=== PATIENT | female | born 1930 | race Caucasian/White ===

== ENCOUNTER 2019-09-08 16:23 | Inpatient (IN) | payer OTHER ==
[~2019-09-08] VITALS: Ht 152.4 cm; Wt 69.9 kg
[2019-09-08 16:29] VITALS: BP_SYST 99
--- NOTE | 2019-09-08 16:39 | NUR ---
Placed in room 2. Placed on quality assurance monitor chassis, blood pressure machine and pulse oximeter. To gown for exam. Side rails up. Report given to CARMITA Johnson.
--- NOTE | 2019-09-08 16:41 | NUR ---
Patient arrived in the ED c/o BLE weeping edema, audible wheezing, and left foot wound that started 3 days ago. Denied any chest pain. Denied any fevers, nausea, vomiting, or chills. Patient is alert and oriented x4, respirations even and unlabored, speaking in full sentences, ambulating with a steady gait. VSS, pain level 0/10. Informed of wait time. Instructed to notify ED staff for any changes in condition or worsening of symptoms. Patient verbalized understanding.
--- NOTE | 2019-09-08 17:00 | NUR ---
ECG done at bedside as ordered by Dr. Patricia. Patient tolerated the procedure well. ER Physician given copy of EKG for review.
--- NOTE | 2019-09-08 17:15 | NUR ---
ER Dr. Patricia at bedside examining patient.
--- NOTE | 2019-09-08 17:27 | NUR ---
# 20 gauge angiocath placed to right hand. Use of asceptic technique. Opsite placed over site. Blood return noted. Flushed with 10 cc of normal saline. No evidence of infiltration noted. Patient tolerated well. Addendum: 09/08/19 at 1756 by [email or web address] # 20 gauge angiocath placed to LAC. Use of asceptic technique. Opsite placed over site. Blood return noted. Flushed with 10 cc of normal saline. No evidence of infiltration noted. Patient tolerated well.
--- NOTE | 2019-09-08 17:48 | NUR ---
X-ray done at bedside as ordered by Dr. Patricia. Patient tolerated the procedure well.
[2019-09-08 18:09] LABS: BASOPHILS % (AUTO) 0.4 % (0.0-2.0); EOSINOPHILS # (AUTO) 0.3 K/uL (0.0-0.4); EOSINOPHILS % (AUTO) 3.7 % (0.0-4.0); HEMATOCRIT 34.4 % (36-48); HEMOGLOBIN 11.3 g/dL (12.0-16.0); LYMPHOCYTES # (AUTO) 0.8 K/uL (1.0-5.5); LYMPHOCYTES % (AUTO) 11.3 % (20.5-51.5); MEAN CORPUSCULAR HEMOGLOBIN 31 pg (27-31); MEAN CORPUSCULAR HGB CONC 33 % (32-36); MEAN CORPUSCULAR VOLUME 95 fL (79.0-98.0); MONOCYTES # (AUTO) 0.7 K/uL (0.0-1.0); MONOCYTES % (AUTO) 8.9 % (1.7-9.3); NEUTROPHILS # (AUTO) 5.5 K/uL (1.8-7.7); NEUTROPHILS % (AUTO) 75.7 % (40.0-70.0); PLATELET COUNT (AUTO) 157 K/uL (130-430); RED BLOOD CELL COUNT(AUTO) 3.62 MIL/uL (4.2-6.2); RED CELL DISTRIBUTION WIDTH 15.4 % (9.0-15.0); WHITE BLOOD COUNT (AUTO) 7.3 K/uL (4.8-10.8)
[2019-09-08 18:22] LABS: ANION GAP 11 (5-15); CALCIUM 9.4 mg/dL (8.4-11.0); CHLORIDE 103 mmol/L (98-107); CREATININE 0.93 mg/dL (0.55-1.30); GLUCOSE 355 mg/dL (70-99); POTASSIUM 4.7 mmol/L (3.5-5.1); SODIUM SERUM 136 mmol/L (136-145); UREA NITROGEN, BLOOD 22 mg/dL (8-21)
[2019-09-08 18:27] LABS: INR 1.2 (0.8-1.2); PROTHROMBIN TIME 11.6 SECS (9.5-12.5)
[2019-09-08 18:28] LABS: ALANINE AMINOTRANSFERASE 55 U/L (12-78); ALBUMIN 2.8 g/dL (3.4-4.8); ASPARTATE AMINOTRANSFERASE 48 U/L (10-37); TOTAL BILIRUBIN 0.7 mg/dL (0.0-1.0)
[2019-09-08] MEDS ORDERED: CEFAZOLIN 1 GM IVPB PREMIX 50 ML IV ONE (19:00)
--- NOTE | 2019-09-08 19:05 | NUR ---
X-ray done at bedside as ordered by Dr. Patricia. Patient tolerated the procedure well.
--- NOTE | 2019-09-08 19:10 | NUR ---
Administered Ancef IVF as ordered by Dr. Patricia. Patient tolerated the medication well. See eMAR.
--- NOTE | 2019-09-08 19:22 | NUR ---
Report given and care transferred to CARMITA Carmona.
--- NOTE | 2019-09-08 19:30 | NUR ---
ASSUMED CARE. RECEIVED RESTING IN BED. AFEBRILE, NOT IN ACUTE DITRESS. NO PAIN OR DISCOMFORT NOTED. ANCEF IVPB INFUSING. VS STABLE, WILL CONTINUE TO MONITOR.
--- NOTE | 2019-09-08 19:50 | NUR ---
ADMITTED TO TELEMETRY FLOOR FOR CHF EXACERBATION UNDER THE SERVICE. OF . GAVE ADMITTING ORDERS. AWAITING BED ASSIGNMENT.
--- NOTE | 2019-09-08 20:12 | NUR ---
MRSA SWAB CLLECTED AND SENT TO THE LAB.
--- NOTE | 2019-09-08 20:35 | NUR ---
REPORT GIVEN TO KIMBERLY VIZCARRA. PT.GOING TO ROOM 120-A. PT. REMAINS STABLE AND PAIN FREE.
[2019-09-08] MEDS ORDERED: ALBUTEROL SULFATE 0.083% 2.5 MG/3 ML VIAL.NEB INH PRN (20:45)
--- NOTE | 2019-09-08 20:53 | NUR ---
TRANSFERRED TO FLOOR VIA ACLS PROTOCOL STABLE. TRANSFER UNEVENTFUL.
--- NOTE | 2019-09-08 20:56 | NUR ---
ADMISSION NOTE Received patient from ER via saqib, received report from CARMITA VILLAGOMEZ. Patient admitted with diagnosis of CONGESTIVE HEART FAILURE. Patient oriented to hospital routine, call light, toileting and safety-patient verbalized understanding.
--- NOTE | 2019-09-08 20:58 | NUR ---
INITIAL NOTES Patient is alert, confused, and hard of hearing. Oriented patient to plan of care and use of call light. IV site and Left arm patent, dressing c/d/i. Will continue to monitor.
[2019-09-08 21:06] VITALS: BP_SYST 127
[2019-09-08 21:38] VITALS: BP_SYST 147
--- NOTE | 2019-09-08 22:10 | NUR ---
IV RE-INSERTION: Restarted on Right AC after 2 attempts. Resumed current IV antibiotics. Will observe for any signs of infiltration.
[2019-09-08] MEDS ORDERED: cefTRIAXone 1 GM VIAL ONE (22:53)
[2019-09-08] MEDS: INSULIN REGULAR, HUMAN 100 UNITS/ML, 10 ML VIAL (humuLIN R) SUBCUT PRN (23:08)
[2019-09-08] MEDS: cefTRIAXone 1 GM IVPB PREMIX 50 ML IV SCH (23:12)
--- NOTE | 2019-09-09 00:05 | NUR ---
Patient is incontinent, incontinence care provided. Patient is confused, reoriented patient to location. Will continue to monitor.
[2019-09-09 01:34] VITALS: BP_SYST 120
--- NOTE | 2019-09-09 02:20 | NUR ---
Patient is asleep, eyes closed. No signs of distress observed. Rise and fall of chest noted. will continue to monitor.
--- NOTE | 2019-09-09 04:30 | NUR ---
Patient pulled out IV on Right arm, no signs of distress observed, pressure applied to IV site, catheter intact. Patient is confused and is trying to stand. Oriented patient to location and time and reason for stay. Patient is now back in bed resting. Will continue to monitor.
[2019-09-09] MEDS: INSULIN REGULAR, HUMAN 100 UNITS/ML, 10 ML VIAL (humuLIN R) SUBCUT PRN ×4 (06:11→20:47)
[2019-09-09 06:16] LABS: BASOPHILS % (AUTO) 0.3 % (0.0-2.0); EOSINOPHILS # (AUTO) 0.4 K/uL (0.0-0.4); EOSINOPHILS % (AUTO) 5.8 % (0.0-4.0); HEMATOCRIT 31.8 % (36-48); HEMOGLOBIN 10.4 g/dL (12.0-16.0); LYMPHOCYTES % (AUTO) 13.6 % (20.5-51.5); MEAN CORPUSCULAR HEMOGLOBIN 31 pg (27-31); MEAN CORPUSCULAR HGB CONC 33 % (32-36); MEAN CORPUSCULAR VOLUME 96 fL (79.0-98.0); MONOCYTES # (AUTO) 0.7 K/uL (0.0-1.0); MONOCYTES % (AUTO) 9.8 % (1.7-9.3); NEUTROPHILS # (AUTO) 5.2 K/uL (1.8-7.7); NEUTROPHILS % (AUTO) 70.5 % (40.0-70.0); PLATELET COUNT (AUTO) 142 K/uL (130-430); RED BLOOD CELL COUNT(AUTO) 3.32 MIL/uL (4.2-6.2); RED CELL DISTRIBUTION WIDTH 15.3 % (9.0-15.0); WHITE BLOOD COUNT (AUTO) 7.4 K/uL (4.8-10.8)
[2019-09-09 06:29] LABS: ALBUMIN 2.5 g/dL (3.4-4.8); ANION GAP 9 (5-15); ASPARTATE AMINOTRANSFERASE 41 U/L (10-37); CALCIUM 8.9 mg/dL (8.4-11.0); CHLORIDE 105 mmol/L (98-107); CREATININE 0.83 mg/dL (0.55-1.30); GLUCOSE 236 mg/dL (70-99); POTASSIUM 4.2 mmol/L (3.5-5.1); SODIUM SERUM 136 mmol/L (136-145); TOTAL BILIRUBIN 0.7 mg/dL (0.0-1.0); UREA NITROGEN, BLOOD 21 mg/dL (8-21)
--- NOTE | 2019-09-09 06:43 | NUR ---
CLOSING NOTES Patient is confused, and hard of hearing. Patient is resting comfortably at this time Oriented patient to location and situation multiple times. New IV site at Left AC, dressing c/d/i. All needs met throughout shift. Will endorse care to oncoming shift that waiting for a call back from Jonathan howard to receive med rec.
--- NOTE | 2019-09-09 07:13 | NUR ---
Spoke with son: Spoke with patient's son Jonathan over phone regarding home medications. He is unable to recall medications at this time. Per son, he will drop off list of patient's home medications in the afternoon, around 4 PM.
[2019-09-09 07:23] LABS: ALANINE AMINOTRANSFERASE 48 U/L (12-78)
--- NOTE | 2019-09-09 07:30 | NUR ---
OPENING NOTES: RECEIVED PATIENT FROM EYELET RIVETER NURSE. PATIENT IS AWAKE AND ALERT x2 LAYING DOWN IN BED. PATIENT IS CONFUSED AND YELLING FOR HER NURSE AND DOCTOR. PATIENT IS TOLERATING OXYGEN ON ROOM AIR WITH NO SIGNS OF DISTRESS OR SHORTNESS OF BREATH NOTED. IV SITE IS PATENT WITH NO SIGNS OF INFILTRATION NOTED. PATIENT IN STABLE CONDITION. SAFETY, FALL AND ASPIRATION PRECAUTIONS ARE IN PLACE. BED LOCKED IN LOWEST POSITION WITH CALL LIGHT IN REACH. WILL CONTINUE TO MONITOR PATIENT FOR ANY CHANGES.
[2019-09-09 08:13] VITALS: BP_SYST 105
[2019-09-09] MEDS: cefTRIAXone 1 GM IVPB PREMIX 50 ML IV SCH ×2 (08:40→20:38)
[2019-09-09] MEDS: ENOXAPARIN SODIUM 30 MG/0.3 ML SYRINGE SUBCUT SCH (08:41)
--- NOTE | 2019-09-09 09:48 | NUR ---
Nutrition Update Chris Scale 15 noted. Pt admitted for CHF exacerbation. Diet: [facility] BMI: 29.7 kg/m2 RD to follow per nutrition care standards.
--- NOTE | 2019-09-09 10:20 | NUR ---
RN ROUNDS: PATIENT IS AWAKE AND ALERT x2 LAYING DOWN IN BED. PATIENT IS CONFUSED AND YELLING FOR HER NURSE. PATIENT WAS REPOSITIONED AND REEDUCATED ON HOW TO USE THE CALL LIGHT. PATIENT IS IN NO DISTRESS. PATIENT IN STABLE CONDITION. WILL CONTINUE TO MONITOR PATIENT FOR ANY CHANGES.
--- NOTE | 2019-09-09 10:48 | NUR ---
Cardiac consult called: for Dr. Mccurdy, regarding CHF, ordered by Dr. Bay, spoke with Jami.
--- NOTE | 2019-09-09 11:55 | NUR ---
DC PLANNING CHART REVIEWED, PATIENT LIVES AT [address] [facility] WITH FAMILY. DAUGHTER IN LAW IS PATIENT'S PRIMARY CLINICAL PROGRAM MANAGER, PRIMARY CONTACT SON ANAND # [phone]. DCP- HOME WITH FAMILY. TRANSPORTATION- VIA FAMILY'S CAR. CONTINUE FOLLOW UP WITH DCP NEEDED JCC RN CM
--- NOTE | 2019-09-09 12:04 | NUR ---
RN ROUNDS: PATIENT IS ASLEEP LAYING DOWN IN BED. NO SIGNS OF DISTRESS OR SHORTNESS OF BREATH NOTED. PATIENT IN STABLE CONDITION. WILL CONTINUE TO MONITOR PATIENT FOR ANY CHANGES.
[2019-09-09 12:13] VITALS: BP_SYST 112
--- NOTE | 2019-09-09 14:51 | NUR ---
RN ROUNDS: PATIENT IS AWAKE AND ALERT x1 LAYING DOWN IN BED. NO SIGNS OF DISTRESS OR SHORTNESS OF BREATH NOTED. PATIENT IN STABLE CONDITION. WILL CONTINUE TO MONITOR PATIENT FOR ANY CHANGES.
--- NOTE | 2019-09-09 16:17 | NUR ---
RN ROUNDS: PATIENT IS AWAKE AND ALERT x2 LAYING DOWN IN BED. PATIENT IS CONFUSED. PATIENT WAS REORIENTED. NO SIGNS OF DISTRESS OR SHORTNESS OF BREATH NOTED. PATIENT IN STABLE CONDITION. WILL CONTINUE TO MONITOR.
[2019-09-09 16:18] VITALS: BP_SYST 116
--- NOTE | 2019-09-09 16:40 | NUR ---
WOUND EVALUATION: Wound Consult received from Dr. Bay. Thank you Dr. Bay for the consult. Patient received in a [place] Bed with a mattress, awake, alert, and oriented. Patient is unable to turn independently. Chris Score is a 15. Past Medical History: Congestive Heart Failure. Admitted for edema of the lower extremities for the past three weeks, with recent complaint of wheezing. Recent Labs: WBC 7.1, RBC 3.32, Hgb 10.4, Hct 31.8, Gluc 236, POC Gluc 283, Alb 2.5. Microbiology: Blood Culture results x 2 in progress. MRSA Screen results in progress. Intrinsic factors that delay wound healing: Congestive Heart Failure, Hypoalbuminemia. Extrinsic factors that delay wound healing: Decreased mobility. Wound Assessment: 1. Left Dorsal Foot: Ulcer from excess edema, present on admission. Wound bed has 60% dull pink tissue, 40% yellow tissue. No odor, no drainage. Periwound intact. Surrounding tissue has dry, scaly, taut, dark discolored with some wrinkles. Extremity has 3+ pitting edema, with mild erythema. Foot has 2+ pitting edema. No odor, no drainage. Wound measures 1.6 cm x 1.4 cm. 2. Left Dorsal Foot, Medial to Site 1: Ulcer from excess edema, present on admission. Wound bed has 90% yellow tissue, 10% pink tissue. No odor, no drainage. Periwound intact. Surrounding tissue has dry, scaly, taut, dark discolored skin with some wrinkles. Extremity has 3+ pitting edema, with mild erythema. Foot has 2+ pitting edema. Wound measures 0.5 cm x 0.9 cm. Recommend: Cleanse wounds with normal saline. Apply SurePrep to michael-wounds. Apply Therahoney gel to wound beds. Cover with foam dressing. Perform wound care daily, and as needed for dressing soiling or dislodgement. Elevate bilateral lower extremities above the heart as tolerated at least two hours per shift minimal. 3. Right lower Extremity: Pitting edema (2+), with mild erythema. No odor, no drainage. 4. Right Foot: Pitting edema (2+). No odor, no drainage. Recommend: Elevate bilateral lower extremities above the heart as tolerated at least two hours per shift minimal. Also recommend: Reposition patient every 2 hours with pillow support and off-load pressure areas with pillows for pressure re-distribution. Offload, elevate and float bilateral heels with pillows. Perform skin care and monitor skin integrity Q shift. Use moisture barrier cream on buttocks and other moisture susceptible areas QID and as needed for soiling. Elevate bilateral lower extremities above the heart as tolerated at least two hours per shift minimal.
--- NOTE | 2019-09-09 18:44 | NUR ---
CLOSING NOTES: PATIENT IS AWAKE AND ALERT x2 LAYING DOWN IN BED EATING DINNER. PATIENT IS TOLERATING OXYGEN ON ROOM AIR WITH NO SIGNS OF DISTRESS OR SHORTNESS OF BREATH NOTED. IV SITE IS PATENT WITH NO SIGNS OF INFILTRATION NOTED. PATIENT IN STABLE CONDITION. SAFETY, FALL AND ASPIRATION PRECAUTIONS REMAINED IN PLACE THROUGHOUT THE SHIFT. BED LOCKED IN LOWEST POSITION WITH CALL LIGHT IN REACH. WILL ENDORSE PATIENT CARE TO ONCOMING MANAGER ORACLE DATABASE NURSE.
[2019-09-09 19:00] VITALS: BP_SYST 101
--- NOTE | 2019-09-09 19:15 | NUR ---
change of shift.pt,.prt quiescet agffect;helene,rstinmg .ptt,rst genral statu stable.respiratory status stable;unlabored@ room air. loc;confused.pt.presents iv access intact patent iv lock.call light/telephone w/in reach of the pt.
[2019-09-09 20:00] VITALS: BP_SYST 101
--- NOTE | 2019-09-09 20:00 | NUR ---
pt.assessed.v/s assessed note b/p values present low values.pt.assessed for cleanliness.pt.repositioned.pt.presents iv access lock. i have as the lower extremities;lt.leg/foot;wound.nadia maria has assessed the wound.generaL StaTUs STaBLe.respiratory STABLE;UNlABORED@ROOM AIR;02-sat%=96%.i have apprised the pt.that snacks/beverages may be provided w/in the shift. no requests posited@this hour.call light/telephone placed w/in reach of the pt.
--- NOTE | 2019-09-09 20:30 | NUR ---
i have assessed the blood glucose:value;299mg/dl.i have apprised the pt.of the value. Addendum: 09/10/19 at 0119 by Eleazar Garland RN ;cardio telephoned the unit. consult;cardio for the pt.i apprised of the pt's data. to assess pt.in the am;09/10/19.
--- NOTE | 2019-09-09 21:00 | NUR ---
2100pmedicaions administered.i have administered;insulin;regular:6-units.no requests posited@this hour.
--- NOTE | 2019-09-09 22:00 | NUR ---
pt.assessed.pt.presents quiescent affect;calm,resting.no c/o pain,nausea.iv access intact;patent.iv fluids infusing: ns-flush. pt.assessed for cleanliness.pt.repositioned.general status stable.respiratory status stable;unlabored.call light/telephone placed w/in reach of the pt.
[2019-09-09] MEDS: ACETAMINOPHEN 325 MG TABLET PO PRN (23:10)
--- NOTE | 2019-09-09 23:15 | NUR ---
pt.had c/o pain;headache.i have administered tylenol:650mg po.to re-assess the pain medication efficacy per pain mgx protocol. no additional requests posited@this hour.
--- NOTE | 2019-09-10 | NUR ---
pt.assessed.v/s assessed values w/in normal limits.pt.assessed for cleanliness.pt. repositioned.iv access intact patent iv fluids;ns-flush infusing.general status stable.respiratory status stable;unlabored.call light/telephone placed w/in reach of the pt.
[2019-09-10 00:40] VITALS: BP_SYST 121
--- NOTE | 2019-09-10 02:00 | NUR ---
pt.assessed.pt.presents quiescent affect;calm,somnolent.pt.assessed for cleanliness.pt.repositioned.no c/o pain,nausea. general status stable.respiratory status stable;unlabored.iv access intact;patent iv fluids;ns-flush infusing.call light/telephone placed w/in reach of the pt.
--- NOTE | 2019-09-10 04:00 | NUR ---
pt.assessed.pt.assessed for cleanliness.pt.cleaned.pt.repositioned.iv access intact patent iv fluids;ns-flush infusing. no c/o pain,nausea.general status stable.respiratory status stable;unlabored.o2-sat%=94%.call light/telephone placed w/in reach of the pt.
[2019-09-10] MEDS: ACETAMINOPHEN 325 MG TABLET PO PRN (05:02)
[2019-09-10] MEDS: INSULIN REGULAR, HUMAN 100 UNITS/ML, 10 ML VIAL (humuLIN R) SUBCUT PRN ×4 (06:20→21:33)
--- NOTE | 2019-09-10 06:30 | NUR ---
pt.assessed.pt.presents quiescent affect;calm,somnolent.pt.assessed for cleanliness.pt.repositioned.iv access intact;patent iv fluids;ns-flush infusing.general status stable.respiratory status stable;unlabored.i have weighed the pt.2/t chf/lasix.call light/telephone placed w/in reach of the pt.
--- NOTE | 2019-09-10 08:00 | NUR ---
INITIAL NOTES Awake, in high davila's. Eating breakfast, feeds self. Denies any pain or shortness of breath. Dressing dry and intact on left foot. Wound care changed last night. Fall and safety precautions in place. Will monitor.
[2019-09-10 08:04] VITALS: BP_SYST 113
[2019-09-10] MEDS: cefTRIAXone 1 GM IVPB PREMIX 50 ML IV SCH ×2 (08:23→21:29)
[2019-09-10] MEDS: ENOXAPARIN SODIUM 30 MG/0.3 ML SYRINGE SUBCUT SCH (08:23)
--- NOTE | 2019-09-10 08:30 | NUR ---
MD ROUNDS Seen by Dr. Mccurdy at bedside.
[2019-09-10] MEDS: FUROSEMIDE 20 MG TABLET PO SCH (09:54)
[2019-09-10] MEDS: LOSARTAN POTASSIUM 50 MG TABLET (COZAAR) PO SCH (09:54)
--- NOTE | 2019-09-10 10:00 | NUR ---
Patient complained of itching on the scalp. Noticed lice on hair strands. Placed immediately on isolation. Called pharmacy for treatment.
--- NOTE | 2019-09-10 10:45 | NUR ---
MD ROUNDS Seen by Dr. Bay at bedside.
[2019-09-10] MEDS ORDERED: COMMUNICATION ORDER XX ONE (11:00)
[2019-09-10] MEDS ORDERED: LICE KILLING SHAMPOO TP ONE (12:00)
[2019-09-10 12:57] VITALS: BP_SYST 97
--- NOTE | 2019-09-10 14:18 | NUR ---
DC Planning: received call from ELIU White at [facility], stated she spoke with pt's son,Jonathan. He requested pt going to snf with possible hospice f/u. I phoned Jonathan # [phone],[facility] asking for confirmation of his dcp request. -- CM to f/u. Addendum: 09/10/19 at 1433 by Kaykay Healy RN >> S/w Jonathan, confirmed wanting pt going to snf per [place] contracted facility. He wants pt to get treatments then may decide for hospice late. -- Informed Dr. Bay and requested dcp/dc order per Cindy request.
--- NOTE | 2019-09-10 15:16 | NUR ---
LICE TREATMENT Treatment done.
--- NOTE | 2019-09-10 15:37 | NUR ---
Dietitian Recommendations * Recommend [facility] diet w/ Glucerna BID (ONS provides 440 kcal/day, 20 gm protein/day) RYLIE, RD Please refer to Nutrition Assessment for details. Addendum: 09/10/19 at [address] Amended: Links added.
[2019-09-10 16:27] VITALS: BP_SYST 135
--- NOTE | 2019-09-10 16:30 | NUR ---
Resting in bed. Denies pain or shortness of breath. Fall and safety precautions in place.
--- NOTE | 2019-09-10 18:25 | NUR ---
CLOSING NOTES In bed, eating dinner. Denies any pain. No distress. All needs met throughout shift. Will endorse.
--- NOTE | 2019-09-10 19:42 | NUR ---
Initial note: Rec'd report from dayshift RN. Patient is awake in bed, no acute distress. Alert and oriented x1, tolerating room air. Patient denies pain, shortness of breath, or itchiness. IV site patent and intact. Call light with patient. Safety, fall, contact isolation precautions in place. Will continue with plan of care.
[2019-09-10 20:34] VITALS: BP_SYST 130
--- NOTE | 2019-09-10 21:16 | NUR ---
Wound care: Left foot wound care and dressing change rendered per MD order and wound care nurse recommendations. Patient tolerated well. Call light with patient. Will continue to monitor.
--- NOTE | 2019-09-10 22:23 | NUR ---
Rounds: Patient is awake in bed, no acute distress. Tolerating room air. IV site patent and intact. Call light with patient. Will continue to monitor.
[2019-09-11 01:03] VITALS: BP_SYST 128
--- NOTE | 2019-09-11 01:24 | NUR ---
Rounds: Patient is sleeping comfortably in bed, no acute distress. Even and unlabored respirations on room air. Call light with patient. Will continue monitoring.
--- NOTE | 2019-09-11 04:11 | NUR ---
Rounds: Patient is awake, no acute distress. Breathing is even and unlabored on room air. Call light with patient. Will continue monitoring.
[2019-09-11] MEDS: INSULIN REGULAR, HUMAN 100 UNITS/ML, 10 ML VIAL (humuLIN R) SUBCUT PRN ×3 (06:31→17:07)
--- NOTE | 2019-09-11 06:41 | NUR ---
Dr. Hall: MD at nurses' station, was made aware regarding patient's son agreeing to a hospice eval per [place] CM. MD will input order.
--- NOTE | 2019-09-11 06:43 | NUR ---
Closing note: Patient is awake in bed, no acute distress. Tolerating room air. Even, unlabored respirations on room air. IV site patent and intact. All needs met. Will endorse care to dayshift RN.
--- NOTE | 2019-09-11 08:00 | NUR ---
received awake and oriented to self only and reoriented to place and time no c/o discomfort vss resp even and unlabored taking diet well gen weakness to ext noted bl will continue to monitor and call servin in place
[2019-09-11] MEDS: FUROSEMIDE 20 MG TABLET PO SCH (08:34)
[2019-09-11] MEDS: cefTRIAXone 1 GM IVPB PREMIX 50 ML IV SCH (08:35)
[2019-09-11] MEDS: LOSARTAN POTASSIUM 50 MG TABLET (COZAAR) PO SCH (08:35)
[2019-09-11] MEDS: ENOXAPARIN SODIUM 30 MG/0.3 ML SYRINGE SUBCUT SCH (08:39)
[2019-09-11 09:09] VITALS: BP_SYST 126
--- NOTE | 2019-09-11 10:48 | NUR ---
DC Planning : received call from Cindy/Wally MG stated she spoke with pt's son/Jonathan who agreed with [facility] services. VIKCY Bermeo made aware. She will be confirming with Jonathan and faxed the order to fax # [phone] .
[2019-09-11 12:16] VITALS: BP_SYST 104
--- NOTE | 2019-09-11 14:05 | NUR ---
Social Service Note: asked APPARATUS OPERATOR to forward hospice eval and pt's information to [facility] per [facility] request. Referral has been sent to [facility] ([phone] f.[phone]). Addendum: 09/11/19 at 1439 by Elvie Mueller LCSW [facility] spoke with pt's son Jonathan ([phone]) who states that his first choice for pt's discharge plan is for pt to go to SNF. Pt's son states that he spoke with the risk and insurance manager who stated that the SNFs were not accepting new pts. [facility] has left a message for Chela ([phone]) with [place] for clarification on the DC order written by physician for DC to snf. Pt's son states that he is agreeable to pt going home with hospice if pt cannot go to SNF.
--- NOTE | 2019-09-11 15:55 | NUR ---
Social Service Note: HEATING UNIT MECHANIC received call from Gucci with [facility] ([phone]); [facility] is arranging for pt to be transported home with [facility]; tentative shredder picker time will be between 6:00pm and 7:00pm. HEATING UNIT MECHANIC provided Gucci with contact information to nurses station to update them if the shredder picker time changes.
[2019-09-11 16:05] VITALS: BP_SYST 124
--- NOTE | 2019-09-11 16:29 | NUR ---
PAGED PAGED LUDWIG MARIA AT [phone] SPOKE WITH NIALL.
[2019-09-11 16:40] VITALS: BP_SYST 110
--- NOTE | 2019-09-11 16:46 | NUR ---
[facility]rixie [facility] DEMETRA.
[2019-09-11] MEDS ORDERED: LOSA50TA3 PO (16:52)
[2019-09-11] MEDS ORDERED: FURO-150 PO (16:52)
[2019-09-11] MEDS ORDERED: Levaquin PO (16:52)
--- NOTE | 2019-09-11 17:53 | NUR ---
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
== END 2019-09-11 17:55 | disposition hospice, home (50) | DRG 291 ==
LOC: SED 16:23 → STU 19:42
PROVIDERS: ADMIT Internal Medicine Hospice and Palliative Medicine; ATTEND Internal Medicine Hospice and Palliative Medicine
DX: I11.0 Hypertensive heart disease with heart failure (principal); E43 Unspecified severe protein-calorie malnutrition; L03.116 Cellulitis of left lower limb; E87.2 Acidosis; I50.33 Acute on chronic diastolic (congestive) heart failure; D63.8 Anemia in other chronic diseases classified elsewhere; E88.09 Other disorders of plasma-protein metabolism, not elsewhere classified; I49.1 Atrial premature depolarization; E11.65 Type 2 diabetes mellitus with hyperglycemia; Z79.82 Long term (current) use of aspirin; Z82.49 Family history of ischemic heart disease and other diseases of the circulatory system; Z86.73 Personal history of transient ischemic attack (TIA), and cerebral infarction without residual deficits
CPT/HCPCS: 36415; 71045; 80053; 82962; 83036; 83605; 83880; 84484; 85025; 85610-TC; 85730-TC; 87040-TC; 87081; 87086; 93005; 93306; 93970; 96365; 99285; G0378; J0690; J0696; J1650; J1815